=== PATIENT | male | born 1960 | race Hispanic/Latino ===

== ENCOUNTER 2022-04-12 16:07 | Observation (INO) | payer OTHER, SELFPAY ==
[2022-04-12] MEDS ORDERED: Furosemide 40 MG/4 ML VIAL ONE (17:04)
[2022-04-12] MEDS ORDERED: Ondansetron PF 4 MG/2 ML Vial ONE (17:04)
[2022-04-12 17:25] LABS: Digoxin Less than 0.15 ng/mL (0.8-2.0)
[2022-04-12] MEDS ORDERED: Dextrose 50% Abboject 50 ML SYRINGE SLOW IVP PRN (18:15)
[2022-04-12] MEDS ORDERED: HumaLOG 300 UNITS/3 ML VIAL SC PRN ×2 (18:15)
[2022-04-12] MEDS ORDERED: Dextrose 5% in Water 1,000 ML IV PRN (18:15)
[2022-04-12] MEDS ORDERED: Lorazepam 1 MG TAB PO PRN (18:16)
[2022-04-12] MEDS ORDERED: Lorazepam 2 MG/ML VIAL IM PRN (18:16)
[2022-04-12] MEDS ORDERED: Ondansetron ODT 4 MG TAB PO PRN (18:17)
[2022-04-12] MEDS ORDERED: Senokot S 8.6-50 MG TAB PO PRN (18:17)
[2022-04-12] MEDS ORDERED: Electrolyte Replacement Protocol FS SCH (18:30)
[2022-04-12] MEDS ORDERED: Mag-Al Plus 1200 MG/1200 MG/120 MG/30 ML UDCUP ONE (19:05)
[2022-04-12] MEDS ORDERED: Lidocaine Viscous Sol 2% 15 ml UD Cup ONE (19:05)
[2022-04-12] MEDS ORDERED: Diltiazem 125 MG in Sodium Chloride 0.9% 100 ML IVPB SCH ×2 (19:15→22:15)
[2022-04-12] MEDS ORDERED: Furosemide 20 MG/2 ML VIAL SLOW IVP SCH (20:15)
[2022-04-12] MEDS ORDERED: Apixaban 5 MG TAB PO SCH (21:00)
[2022-04-12 21:03] LABS: Troponin I 0.045 ng/mL (< 0.028)
[2022-04-12] MEDS: Famotidine 20 MG TAB PO SCH (22:00)
[2022-04-12] MEDS ORDERED: Digoxin 0.5 MG/2 ML AMP SLOW IVP SCH (22:00)
[2022-04-12 22:34] LABS: Troponin I 0.058 ng/mL (< 0.028)
[2022-04-13] MEDS ORDERED: Ketorolac Tromethamine 30 MG/ML VIAL IVP SCH (00:15)
[2022-04-13] MEDS: Digoxin 0.5 MG/2 ML AMP SLOW IVP SCH (01:53)
[2022-04-13] MEDS ORDERED: Lorazepam 2 MG/ML VIAL SLOW IVP SCH (02:00)
[2022-04-13] MEDS ORDERED: Midodrine HCl 2.5 MG TAB PO SCH (02:15)
[2022-04-13 02:21] LABS: Troponin I 0.058 ng/mL (< 0.028)
[2022-04-13 05:41] LABS: Anion Gap 18 mmol/L (10-20); BUN (Urea Nitrogen) 11 mg/dL (8.4-25.7); Calc. Creatinine Clearance 101 mL/min (70-130); Calcium 7.4 mg/dL (7.8-10.44); Carbon Dioxide 27 mmol/L (23-31); Chloride 98 mmol/L (98-107); Estimated GFR 102; Glucose 91 mg/dL (80-115); Potassium 3.5 mmol/L (3.5-5.1); Sodium 139 mmol/L (136-145)
[2022-04-13 05:46] LABS: #Monocytes 0.3 10x3/uL (0.0-1.1); #Neutrophils 3.5 10x3/uL (1.5-8.4); %Basophils 0.4 % (0.0-2.0); %Eosinophils 0.9 % (0.0-6.0); %Lymphocytes 15.4 % (18.0-47.0); %Monocytes 6.4 % (0.0-10.0); %Neutrophils 76.7 % (40.0-75.0); Hemoglobin 13.2 g/dL (13.5-17.5); Mean Corpuscular HGB CONC 34.2 g/dL (32.0-36.0); Mean Corpuscular Volume 93.5 fl (81.2-95.1); Mean Platelet Volume 11.8 fl (7.4-10.4); Platelet Count 59 10x3/uL (150-450); RBC Distribution Width 16.3 % (11.5-14.5); Red Blood Cell (RBC) Count 4.13 10x6/uL (4.32-5.72); White Blood Cell (WBC) Count 4.6 10x3/uL (3.5-10.5)
[2022-04-13 06:02] LABS: CKMB 3.3 ng/mL (0-6.6)
[2022-04-13] MEDS ORDERED: Digoxin 0.125 MG TAB PO SCH ×2 (06:30→09:00)
[2022-04-13] MEDS: Levothyroxine Sodium 25 MCG TAB PO SCH (06:39)
[2022-04-13] MEDS: Furosemide 20 MG/2 ML VIAL SLOW IVP SCH ×2 (07:41→15:22)
[2022-04-13] MEDS ORDERED: Potassium Chloride 20 MEQ TAB PO SCH (08:00)
[2022-04-13] MEDS ORDERED: predniSONE 20 MG TAB PO SCH (08:00)
[2022-04-13] MEDS: Ondansetron PF 4 MG/2 ML Vial IVP PRN ×3 (08:11→21:46)
[2022-04-13] MEDS ORDERED: THIAMINE HCL 250 MG PO SCH (09:00)
[2022-04-13] MEDS: Acetaminophen 325 MG TAB PO PRN (09:51)
[2022-04-13] MEDS: Famotidine 20 MG TAB PO SCH ×2 (09:52→21:45)
[2022-04-13] MEDS: Empagliflozin 10 MG TAB PO SCH (09:52)
[2022-04-13] MEDS: Folic Acid 1 MG TAB PO SCH (09:53)
[2022-04-13] MEDS: Multivit, Therapeutic 1 TAB PO SCH (09:53)
[2022-04-13 14:53] VITALS: BMI 24.1
[2022-04-13 16:13] LABS: Magnesium 1.4 mg/dL (1.6-2.6)
[2022-04-13] MEDS: Magnesium 2 GM/50 ML(in water) 2 GM in Premix Bag 1 BAG IVPB SCH ×2 (17:43→21:40)
[2022-04-13] MEDS ORDERED: Lorazepam 1 MG TAB PO SCH (23:30)
[2022-04-14] MEDS: Digoxin 0.5 MG/2 ML AMP SLOW IVP SCH (02:56)
[2022-04-14 04:24] LABS: #Eosinphils 0.1 10x3/uL (0.0-0.5); #Monocytes 0.3 10x3/uL (0.0-1.1); #Neutrophils 2.7 10x3/uL (1.5-8.4); %Basophils 0.3 % (0.0-2.0); %Eosinophils 1.4 % (0.0-6.0); %Lymphocytes 18.2 % (18.0-47.0); %Monocytes 6.9 % (0.0-10.0); %Neutrophils 72.9 % (40.0-75.0); Hemoglobin 13.7 g/dL (13.5-17.5); Mean Corpuscular HGB CONC 33.7 g/dL (32.0-36.0); Mean Corpuscular Hemoglobin 31.7 pg (27.0-33.0); Mean Platelet Volume 11.9 fl (7.4-10.4); Platelet Count 44 10x3/uL (150-450); RBC Distribution Width 15.6 % (11.5-14.5); Red Blood Cell (RBC) Count 4.32 10x6/uL (4.32-5.72); White Blood Cell (WBC) Count 3.6 10x3/uL (3.5-10.5)
[2022-04-14 04:35] LABS: Anion Gap 13 mmol/L (10-20); BUN (Urea Nitrogen) 9 mg/dL (8.4-25.7); Calc. Creatinine Clearance 104 mL/min (70-130); Calcium 8.4 mg/dL (7.8-10.44); Carbon Dioxide 28 mmol/L (23-31); Chloride 98 mmol/L (98-107); Estimated GFR 104; Glucose 74 mg/dL (80-115); Potassium 3.3 mmol/L (3.5-5.1); Sodium 136 mmol/L (136-145)
[2022-04-14] MEDS: Levothyroxine Sodium 25 MCG TAB PO SCH (06:50)
[2022-04-14] MEDS: Furosemide 20 MG/2 ML VIAL SLOW IVP SCH (06:50)
[2022-04-14] MEDS ORDERED: Potassium Chloride 20 MEQ TAB PO SCH ×2 (08:00→14:00)
[2022-04-14] MEDS: Multivit, Therapeutic 1 TAB PO SCH (08:11)
[2022-04-14] MEDS: Digoxin 0.125 MG TAB PO SCH (08:11)
[2022-04-14] MEDS: Famotidine 20 MG TAB PO SCH ×2 (08:11→21:41)
[2022-04-14] MEDS: Empagliflozin 10 MG TAB PO SCH (08:11)
[2022-04-14] MEDS: Folic Acid 1 MG TAB PO SCH (08:11)
[2022-04-14 11:10] LABS: Magnesium 1.7 mg/dL (1.6-2.6)
[2022-04-14] MEDS ORDERED: Magnesium 2 GM/50 ML(in water) 2 GM in Premix Bag 1 BAG IVPB SCH ×2 (11:30→16:00)
[2022-04-14 12:29] LABS: Potassium 3.7 mmol/L (3.5-5.1)
[2022-04-14] MEDS ORDERED: Furosemide 20 MG TAB PO SCH (14:15)
[2022-04-14] MEDS: Ondansetron PF 4 MG/2 ML Vial IVP PRN ×2 (16:10→22:52)
[2022-04-14] MEDS: Acetaminophen 325 MG TAB PO PRN (16:20)
[2022-04-14] MEDS ORDERED: Lorazepam 0.5 MG TAB PO PRN (22:00)
[2022-04-14] MEDS ORDERED: Calcium Carbonate 500 MG ChewTAB PO SCH (22:00)
[2022-04-15] MEDS: Digoxin 0.5 MG/2 ML AMP SLOW IVP SCH (01:43)
[2022-04-15 03:54] LABS: Magnesium 2.1 mg/dL (1.6-2.6)
[2022-04-15] MEDS: Levothyroxine Sodium 25 MCG TAB PO SCH (06:43)
[2022-04-15] MEDS ORDERED: Spironolactone 25 MG TAB PO SCH (08:00)
[2022-04-15] MEDS: Empagliflozin 10 MG TAB PO SCH (08:23)
[2022-04-15] MEDS: Digoxin 0.125 MG TAB PO SCH (08:23)
[2022-04-15] MEDS: Famotidine 20 MG TAB PO SCH (08:24)
[2022-04-15] MEDS: Multivit, Therapeutic 1 TAB PO SCH (08:24)
[2022-04-15] MEDS: Folic Acid 1 MG TAB PO SCH (08:24)
[2022-04-15] MEDS ORDERED: Furosemide 20 MG TAB PO SCH (09:00)
[2022-04-15 11:30] VITALS: BP 94/71; TEMP 97.8
[2022-04-15 13:08] LABS: Anion Gap 14 mmol/L (10-20); BUN (Urea Nitrogen) 14 mg/dL (8.4-25.7); Calc. Creatinine Clearance 89 mL/min (70-130); Calcium 9.2 mg/dL (7.8-10.44); Carbon Dioxide 26 mmol/L (23-31); Chloride 99 mmol/L (98-107); Estimated GFR 101; Glucose 103 mg/dL (80-115); Sodium 135 mmol/L (136-145)
[2022-04-15] MEDS ORDERED: Lorazepam 0.5 MG TAB PO PRN (18:16)
[2022-04-15] MEDS ORDERED: Thiamine 100 MG TAB PO SCH (21:00)
[2022-04-15] MEDS ORDERED: Apixaban 5 MG TAB PO SCH (21:00)
== END 2022-04-15 16:00 | disposition home or self-care (01) ==
LOC: CSHERS 16:07 → CSHTELE 20:36
PROVIDERS: ADMIT Family Medicine; ATTEND Internal Medicine
DX: I48.20 Chronic atrial fibrillation, unspecified (principal); I11.0 Hypertensive heart disease with heart failure; I50.23 Acute on chronic systolic (congestive) heart failure; R77.8 Other specified abnormalities of plasma proteins; R07.89 Other chest pain; J96.21 Acute and chronic respiratory failure with hypoxia; F10.120 Alcohol abuse with intoxication, uncomplicated; E03.9 Hypothyroidism, unspecified; D69.6 Thrombocytopenia, unspecified; Z20.822 Contact with and (suspected) exposure to COVID-19; E80.6 Other disorders of bilirubin metabolism; E87.70 Fluid overload, unspecified; Z91.14 Patient's other noncompliance with medication regimen; Z79.01 Long term (current) use of anticoagulants; Z79.899 Other long term (current) drug therapy; Z88.8 Allergy status to other drugs, medicaments and biological substances; Z91.014 Allergy to mammalian meats
CPT/HCPCS: 36415; 36416; 80048; 80162; 82553; 83690; 83735; 84484; 85025; 93005; 93010; 94760; 96365; 96366; 96374; 96375; 96376; G0378; J1160; J1885; J1940; J2060; J2405; J3475; J3490; U0003; U0005

== ENCOUNTER 2023-03-23 20:02 | Inpatient (IN) | payer BC ==
[2023-03-23 22:00] VITALS: BMI 29.1
[2023-03-23] MEDS ORDERED: Nitroglycerin 0.4 MG TAB (25 Tab Bottle) SL PRN (22:12)
[2023-03-23] MEDS ORDERED: Glucagon 1 MG/ML KIT IM PRN (22:25)
[2023-03-23] MEDS ORDERED: Dextrose 5% in Water 1,000 ML IV PRN (22:25)
[2023-03-23] MEDS ORDERED: HumaLOG 300 UNITS/3 ML VIAL SC PRN (22:25)
[2023-03-23] MEDS ORDERED: Dextrose 50% Abboject 50 ML SYRINGE SLOW IVP PRN (22:25)
[2023-03-23] MEDS ORDERED: Thiamine HCl 200 MG/2 ML VIAL SLOW IVP SCH (22:30)
[2023-03-23] MEDS ORDERED: Furosemide 40 MG/4 ML VIAL SLOW IVP SCH (22:30)
[2023-03-23] MEDS ORDERED: Potassium Chloride 20 MEQ TAB PO SCH (22:30)
[2023-03-23] MEDS ORDERED: Apixaban 5 MG TAB PO SCH (22:45)
[2023-03-23] MEDS: Acetaminophen 325 MG TAB PO PRN (22:54)
[2023-03-23] MEDS ORDERED: Folic Acid 5 MG/ML MDV SC SCH (23:00)
[2023-03-23 23:08] LABS: INR-International Normal Ratio 1.1; PTT 29.9 sec (22.0-33.0); Prothrombin Time 11.9 sec (9.5-12.1)
[2023-03-23 23:15] LABS: Magnesium 1.8 mg/dL (1.6-2.6)
[2023-03-23 23:21] LABS: Troponin I 0.024 ng/mL (< 0.028)
[2023-03-23 23:36] LABS: Free T4 (Free Thyroxine) 0.88 ng/dL (0.70-1.48)
[2023-03-24] MEDS ORDERED: Metoprolol Tartrate 25 MG TAB PO SCH (01:00)
[2023-03-24 02:05] LABS: Cardiac Risk 2.5 (Less than 4.5)
[2023-03-24 02:08] LABS: Troponin I 0.024 ng/mL (< 0.028)
[2023-03-24] MEDS: Acetaminophen 325 MG TAB PO PRN ×3 (03:59→16:51)
[2023-03-24] MEDS: Levothyroxine Sodium 25 MCG TAB PO SCH (06:10)
[2023-03-24] MEDS: Nitroglycerin 2% Ointment 1 INCH/1 GM Packet TOP SCH ×2 (06:11→14:32)
[2023-03-24] MEDS: Ondansetron ODT 4 MG TAB PO PRN ×2 (06:59→16:47)
[2023-03-24] MEDS ORDERED: Apixaban 5 MG TAB PO SCH (09:00)
[2023-03-24] MEDS ORDERED: Ondansetron ODT 4 MG TAB PO SCH (09:00)
[2023-03-24] MEDS ORDERED: Magnesium 2 GM/50 ML(in water) 2 GM in Premix 1 BAG IVPB SCH (09:00)
[2023-03-24] MEDS: Multivitamin W/ Minerals 1 TAB PO SCH (09:14)
[2023-03-24] MEDS: Folic Acid 1 MG TAB PO SCH (09:14)
[2023-03-24] MEDS: Thiamine 100 MG TAB PO SCH (09:14)
[2023-03-24] MEDS: Losartan 25 MG TAB PO SCH (09:15)
[2023-03-24] MEDS: Metoprolol Tartrate 25 MG TAB PO SCH ×2 (09:16→21:45)
[2023-03-24] MEDS: Aspirin 81 mg Enteric Coated Tablet PO SCH (09:16)
[2023-03-24] MEDS ORDERED: Mag-Al 1200 mg/1200 mg/30 ML UDCUP PO PRN (10:45)
[2023-03-24] MEDS ORDERED: Ranolazine 500 MG ER.TAB PO SCH (11:00)
[2023-03-24] MEDS: Ranolazine 500 MG ER.TAB PO SCH ×2 (11:24→21:45)
[2023-03-24] MEDS: Atorvastatin Calcium 20 MG TAB PO SCH (21:45)
[2023-03-25 05:00] LABS: #Eosinphils 0.3 10x3/uL (0.0-0.5); #Monocytes 0.6 10x3/uL (0.0-1.1); #Neutrophils 5.4 10x3/uL (1.5-8.4); %Basophils 0.3 % (0.0-2.0); %Eosinophils 3.6 % (0.0-6.0); %Lymphocytes 12.5 % (18.0-47.0); %Neutrophils 75.3 % (40.0-75.0); Hematocrit 48.8 % (38.8-50.0); Hemoglobin 16.6 g/dL (13.5-17.5); Mean Corpuscular Hemoglobin 31.3 pg (27.0-33.0); Mean Corpuscular Volume 92.1 fl (81.2-95.1); Mean Platelet Volume 11.2 fl (7.4-10.4); Platelet Count 120 10x3/uL (150-450); RBC Distribution Width 13.6 % (11.5-14.5); White Blood Cell (WBC) Count 7.2 10x3/uL (3.5-10.5)
[2023-03-25 05:14] LABS: Anion Gap 15 mmol/L (10-20); BUN (Urea Nitrogen) 20 mg/dL (8.4-25.7); Calc. Creatinine Clearance 92 mL/min (70-130); Calcium 9.1 mg/dL (7.8-10.44); Carbon Dioxide 23 mmol/L (23-31); Chloride 102 mmol/L (98-107); Estimated GFR 94; Glucose 141 mg/dL (80-115); Potassium 4.2 mmol/L (3.5-5.1); Sodium 136 mmol/L (136-145)
[2023-03-25] MEDS: Levothyroxine Sodium 25 MCG TAB PO SCH (06:19)
[2023-03-25] MEDS: Aspirin 81 mg Enteric Coated Tablet PO SCH (08:00)
[2023-03-25] MEDS: Ranolazine 500 MG ER.TAB PO SCH ×2 (08:00→22:39)
[2023-03-25] MEDS: Thiamine 100 MG TAB PO SCH (08:00)
[2023-03-25] MEDS: Multivitamin W/ Minerals 1 TAB PO SCH (08:00)
[2023-03-25] MEDS: Folic Acid 1 MG TAB PO SCH (08:00)
[2023-03-25] MEDS: Metoprolol Tartrate 25 MG TAB PO SCH (08:00)
[2023-03-25] MEDS: Losartan 25 MG TAB PO SCH (08:00)
[2023-03-25] MEDS ORDERED: Iopamidol 300 61% 100 ML VIAL FS ONE (10:17)
[2023-03-25] MEDS ORDERED: Communication Order-Pharmacy FS SCH (11:30)
[2023-03-25] MEDS ORDERED: Nitroglycerin 50 MG/250 ML BOT 250 ML ONE (13:03)
[2023-03-25] MEDS ORDERED: Heparin 10,000 UNITS/ 10 ML VIAL ONE (13:03)
[2023-03-25] MEDS ORDERED: Lidocaine 1% (PF) 30 ML VIAL ONE (13:03)
[2023-03-25] MEDS ORDERED: Verapamil 5 MG/2 ML VIAL ONE (13:04)
[2023-03-25] MEDS ORDERED: fentaNYL 50 mcg/mL 1 mL Vial ONE (13:34)
[2023-03-25] MEDS ORDERED: Midazolam HCl 2 mg/2 ml Vial ONE (13:34)
[2023-03-25] MEDS ORDERED: PHENYLEPHRINE-NS 100 MCG/ML 10 ML SYRINGE ONE (13:45)
[2023-03-25] MEDS ORDERED: Sodium Chloride 0.9% 200 ML IV PRN (13:53)
[2023-03-25] MEDS ORDERED: Acetaminophen/Codeine 30-300mg Tablet PO PRN ×2 (13:53)
[2023-03-25] MEDS ORDERED: Nitroglycerin 0.4 MG TAB (25 Tab Bottle) SL PRN (13:53)
[2023-03-25] MEDS: Carvedilol 6.25 MG TAB PO SCH (16:52)
[2023-03-25] MEDS: Atorvastatin Calcium 20 MG TAB PO SCH (22:39)
[2023-03-26] MEDS ORDERED: Guaifenesin DM 100-10/5 ML UDCUP PO PRN (00:44)
[2023-03-26 05:06] LABS: #Eosinphils 0.2 10x3/uL (0.0-0.5); #Monocytes 0.6 10x3/uL (0.0-1.1); #Neutrophils 5.1 10x3/uL (1.5-8.4); %Basophils 0.3 % (0.0-2.0); %Eosinophils 2.9 % (0.0-6.0); %Lymphocytes 12.8 % (18.0-47.0); %Neutrophils 74.6 % (40.0-75.0); Mean Corpuscular Hemoglobin 31.3 pg (27.0-33.0); Mean Corpuscular Volume 91.8 fl (81.2-95.1); Mean Platelet Volume 11.5 fl (7.4-10.4); Platelet Count 111 10x3/uL (150-450); RBC Distribution Width 13.7 % (11.5-14.5); Red Blood Cell (RBC) Count 5.12 10x6/uL (4.32-5.72); White Blood Cell (WBC) Count 6.9 10x3/uL (3.5-10.5)
[2023-03-26 05:18] LABS: Anion Gap 14 mmol/L (10-20); BUN (Urea Nitrogen) 26 mg/dL (8.4-25.7); Calc. Creatinine Clearance 90 mL/min (70-130); Carbon Dioxide 22 mmol/L (23-31); Chloride 104 mmol/L (98-107); Estimated GFR 92; Glucose 138 mg/dL (80-115); Potassium 4.3 mmol/L (3.5-5.1); Sodium 136 mmol/L (136-145)
[2023-03-26 06:00] LABS: Platelet Adequacy Comment Appears Decreased; RBC Morph Comment Within Normal Limits
[2023-03-26] MEDS: Levothyroxine Sodium 25 MCG TAB PO SCH (06:59)
[2023-03-26] MEDS: Thiamine 100 MG TAB PO SCH (07:39)
[2023-03-26] MEDS: Ranolazine 500 MG ER.TAB PO SCH (07:39)
[2023-03-26] MEDS: Folic Acid 1 MG TAB PO SCH (07:39)
[2023-03-26] MEDS: Carvedilol 6.25 MG TAB PO SCH (07:39)
[2023-03-26] MEDS: Aspirin 81 mg Enteric Coated Tablet PO SCH (07:39)
[2023-03-26] MEDS: Multivitamin W/ Minerals 1 TAB PO SCH (07:39)
[2023-03-26] MEDS ORDERED: Valsartan 80 MG TAB PO SCH (09:00)
[2023-03-26 12:51] VITALS: BP 119/77; TEMP 98.1
== END 2023-03-26 14:36 | disposition home or self-care (01) | DRG 280 ==
LOC: CSHTELE 20:44 → OBSVTOIN 03-25 09:56
PROVIDERS: ADMIT Family Medicine; ATTEND Internal Medicine
PROC: 4A023N7 Measurement of Cardiac Sampling and Pressure, Left Heart, Percutaneous Approach (ICD-10-PCS; principal; 2023-03-25)
PROC: B2111ZZ Fluoroscopy of Multiple Coronary Arteries using Low Osmolar Contrast (ICD-10-PCS; 2023-03-25)
PROC: B2151ZZ Fluoroscopy of Left Heart using Low Osmolar Contrast (ICD-10-PCS; 2023-03-25)
DX: I11.0 Hypertensive heart disease with heart failure (principal); I50.43 Acute on chronic combined systolic (congestive) and diastolic (congestive) heart failure; I21.A1 Myocardial infarction type 2; I42.0 Dilated cardiomyopathy; F10.129 Alcohol abuse with intoxication, unspecified; I48.0 Paroxysmal atrial fibrillation; E11.9 Type 2 diabetes mellitus without complications; E03.9 Hypothyroidism, unspecified; Z91.014 Allergy to mammalian meats; Z91.018 Allergy to other foods; Z79.82 Long term (current) use of aspirin; Z79.899 Other long term (current) drug therapy; E78.5 Hyperlipidemia, unspecified; Z95.5 Presence of coronary angioplasty implant and graft; Z88.8 Allergy status to other drugs, medicaments and biological substances; E83.42 Hypomagnesemia; Z79.4 Long term (current) use of insulin; D69.6 Thrombocytopenia, unspecified
CPT/HCPCS: 36415; 36416; 80048; 80061; 83735; 84439; 84443; 84484; 85025; 85610; 85730; 93005; 93010; 93306; 93458; 99152; C1769; C1894; J0583; J1644; J1815; J1940; J2001; J2250; J3010; J3411; J3475; Q0162; Q9967

== ENCOUNTER 2023-05-26 13:30 | Emergency (ER) | payer SELFPAY ==
[2023-05-26] MEDS ORDERED: Iopamidol 300 61% 100 ML VIAL FS ONE (14:04)
[2023-05-26 14:14] LABS: #Eosinphils 0.1 10x3/uL (0.0-0.5); #Monocytes 0.6 10x3/uL (0.0-1.1); #Neutrophils 9.5 10x3/uL (1.5-8.4); %Basophils 0.4 % (0.0-2.0); %Eosinophils 0.5 % (0.0-6.0); %Lymphocytes 7.3 % (18.0-47.0); %Monocytes 5.5 % (0.0-10.0); %Neutrophils 86.1 % (40.0-75.0); Hematocrit 49.3 % (38.8-50.0); Hemoglobin 17.3 g/dL (13.5-17.5); Mean Corpuscular HGB CONC 35.1 g/dL (32.0-36.0); Mean Corpuscular Hemoglobin 30.8 pg (27.0-33.0); Mean Corpuscular Volume 87.9 fl (81.2-95.1); Mean Platelet Volume 11.6 fl (7.4-10.4); Platelet Count 165 10x3/uL (150-450); RBC Distribution Width 13.1 % (11.5-14.5); Red Blood Cell (RBC) Count 5.61 10x6/uL (4.32-5.72); White Blood Cell (WBC) Count 11.1 10x3/uL (3.5-10.5)
[2023-05-26 14:33] LABS: ALT (SGPT) 23 U/L (8-55); AST (SGOT) 36 U/L (5-34); Albumin 4.7 g/dL (3.4-4.8); Alkaline Phosphatase 103 U/L (40-110); Anion Gap 19 mmol/L (10-20); BUN (Urea Nitrogen) 9 mg/dL (8.4-25.7); Bilirubin, Total 1.9 mg/dL (0.2-1.2); Calc. Creatinine Clearance 0 mL/min (70-130); Calcium 9.4 mg/dL (7.8-10.44); Carbon Dioxide 22 mmol/L (23-31); Chloride 98 mmol/L (98-107); Estimated GFR 91; Glucose 321 mg/dL (80-115); Potassium 4.1 mmol/L (3.5-5.1); Protein, Total 7.7 g/dL (5.8-8.1); Sodium 135 mmol/L (136-145)
[2023-05-26 14:34] LABS: Troponin I 0.018 ng/mL (< 0.028)
[2023-05-26 15:08] LABS: Bilirubin Neg (Negative); Blood, Urine Negative (Negative); Clarity Clear (Clear); Glucose, Urine (Dipstick) >=1000 mg/dL (Negative); Ketone, Urine 5 mg/dL (Negative); Leukocyte Negative (Negative); Nitrite Negative (Negative); Protein, Urine (Dipstick) 15 mg/dl (Neg-Trace); Urobilinogen Normal mg/dL (Less than 2)
[2023-05-26 16:38] LABS: CAUTI Indications for Culture Pelvic or flank pain; RBC/HPF 0-3 HPF (0-3); Squamous Epithelial None Seen HPF (0-3); WBC/HPF None Seen HPF (0-3)
[2023-05-26 16:39] LABS: Bacteria/HPF None Seen HPF (None Seen); Urine Culture Reflex No No
== END 2023-05-26 19:10 | disposition home or self-care (01) ==
LOC: CSHERS 13:30
DX: R07.89 Other chest pain (principal); R73.9 Hyperglycemia, unspecified
CPT/HCPCS: 71045; 74177; 80053; 81001; 83690; 83880; 84484; 85025; 93005; 96374; Q9967